=== PATIENT | female | born 1955 | race Caucasian/White ===

== ENCOUNTER 2017-04-09 10:50 | Emergency (ER) | payer MEDICARE ==
[2017-04-09 12:02] VITALS: BP 146/119
--- NOTE | 2017-04-09 12:45 | UC ---
UC General HPI - HPI Summary HPI Summary: 2-3 days of worsening abdomen pain---has been taking 10 mg oxycodone pain is left side of abdomen and radiates around front---patient is confused and is unreliable about recent events - History of Current Complaint Chief Complaint: UCAbdominalPain Stated Complaint: ABDOMINAL AND BACK PAIN Time Seen by Provider: 04/09/17 12:34 Hx Obtained From: Patient Hx From Patient Unobtainable Due To: Other - confused to recent events Onset/Duration: Gradual Onset, Lasting Days, Still Present Timing: Constant Onset Severity: Severe Current Severity: Severe Pain Intensity: 8 Pain Location at: left flank and abdomen Associated Signs & Symptoms: Positive: Abdominal Pain, Back Pain, Confusion - Allergy/Home Medications Allergies/Adverse Reactions: Allergies Allergy/AdvReac Type Severity Reaction Status Date / Time No Known Allergies Allergy Verified 04/09/17 11:50 PMH/Surg Hx/FS Hx/Imm Hx Previously Healthy: No Cardiovascular History: Hypertension GI/ History: Gastroesophageal Reflux, Kidney Stones Other History Of: Hepatitis C - Surgical History Surgical History: Yes Surgery Procedure, Year, and Place: 2016 LITHOTRIPSY. 1985 TUBAL LIGATION - Family History Known Family History: Positive: Unknown - Social History Occupation: Unemployed Lives: Alone Alcohol Use: None Substance Use Type: None Smoking Status (MU): Current Every Day Smoker Type: Cigarettes Amount Used/How Often: 1/2 PPD, 40+ YEARS Have You Smoked in the Last Year: Yes Household Exposure Type: Cigarettes Cessation Counseling: Counseled 3+Min - 10 Min Review of Systems Constitutional: Negative Skin: Negative Eyes: Negative ENT: Negative Respiratory: Negative Cardiovascular: Negative Gastrointestinal: Abdominal Pain Genitourinary: Negative Motor: Negative Neurovascular: Negative Musculoskeletal: Negative Neurological: Negative Psychological: Other - confused Is Patient Immunocompromised?: No All Other Systems Reviewed And Are Negative: Yes Physical Exam Triage Information Reviewed: Yes Completion Of Physical Exam Limited Due To: Altered Mental Status Appearance: Ill-Appearing, Pain Distress, Obese Vital Signs: Initial Vital Signs Temp 96.7 F 04/09/17 11:52 Pulse 113 04/09/17 11:52 Resp 20 04/09/17 11:52 BP 146/119 04/09/17 11:52 Pulse Ox 98 04/09/17 11:52 Vital Signs Reviewed: Yes Eye Exam: Normal Eyes: Positive: Conjunctiva Clear, Other: - pupils small ENT Exam: Normal ENT: Positive: Normal ENT inspection, Hearing grossly normal, Pharynx normal, Pharyngeal erythema, Nasal congestion, Uvula midline. Negative: Tonsillar swelling, Tonsillar exudate, Trismus, Muffled voice, Hoarse voice, Dental tenderness, Sinus tenderness Dental Exam: Normal Neck exam: Normal Neck: Positive: Supple, Nontender, No Lymphadenopathy Respiratory Exam: Normal Respiratory: Positive: Chest non-tender, Lungs clear, Normal breath sounds, No respiratory distress, No accessory muscle use Cardiovascular Exam: Normal Cardiovascular: Positive: No Murmur, Pulses Normal, Brisk Capillary Refill, Tachycardia Abdomen Description: Positive: Distended, Hepatomegaly. Negative: CVA Tenderness (R), CVA Tenderness (L), McBurney's Point Tenderness, Peritoneal Signs, Pulsatile Mass, Splenomegaly Bowel Sounds: Positive: Present Musculoskeletal Exam: Normal Musculoskeletal: Positive: Strength Intact, ROM Intact, No Edema Neurological Exam: Normal Neurological: Positive: Alert, Muscle Tone Normal Psychological Exam: Other Psychological: Positive: Other: - confusion (confirmed by friend who is with her ) Skin Exam: Normal Diagnostics - Laboratory Diagnostic Studies Completed/Ordered: ua trace leuks - EKG Cardiac Rhythm: Sinus: Normal Ectopy: None ST Segment: Normal Course/Dx - Course Course Of Treatment: transfer to [facility] [place] by ambulance - Differential Dx - Multi-Symptom Provider Diagnoses: confusion, abdomen pain - Physician Notifications Discussed Patient Care With: Rinku Alcala Time Discussed With Above Provider: 12:55 Instructed by Provider To: Transfer Discharge - Discharge Plan Condition: Guarded Disposition: TRANS HIGHER LVL OF CARE FAC Referrals: Nikolay Jacobs NP [Primary Care Provider] -
== END 2017-04-09 13:07 | disposition short-term general hospital (02) ==
LOC: UCEAST 10:50
DX: R41.0 Disorientation, unspecified (principal); R10.9 Unspecified abdominal pain; M54.5 Low back pain; I10 Essential (primary) hypertension; K21.9 Gastro-esophageal reflux disease without esophagitis; Z87.442 Personal history of urinary calculi; B18.2 Chronic viral hepatitis C; Z71.6 Tobacco abuse counseling; F17.210 Nicotine dependence, cigarettes, uncomplicated
CPT/HCPCS: 81003; 87086; 93005

== ENCOUNTER 2017-04-09 13:29 | Emergency (ER) | payer MEDICARE ==
[2017-04-09 14:18] LABS: ABS Basophils 0.1 10^3/ul (0-0.2); ABS Eosinophils 0.2 10^3/ul (0-0.6); ABS Lymphocytes 3.7 10^3/ul (1.0-4.8); ABS Monocytes 0.5 10^3/ul (0-0.8); ABS Neutrophils 4.2 10^3/ul (1.5-7.7); ABS Nucleated RBC 0 10^3/ul; Eosinophil % 2.6 % (0-6); Hematocrit 44 % (35-47); Hemoglobin 14.9 g/dl (12.0-16.0); Lymphocyte % 42.6 % (25-47); Mean Corpuscular HGB Conc 34 g/dl (31-36); Mean Corpuscular Hemoglobin 33 pg (27-31); Mean Corpuscular Volume 95 fL (80-97); Mean Platelet Volume 9 um3 (7.4-10.4); Nucleated Red Blood Cells % 0; Platelet Count 244 10^3/ul (150-450); Red Blood Count 4.59 10^6/ul (4.0-5.4); Red Cell Distribution Width 15 % (10.5-15); White Blood Count 8.8 10^3/ul (3.5-10.8)
--- NOTE | 2017-04-09 14:23 | RAD ---
INDICATION: Flank pain. Question nephrolithiasis. COMPARISON: No relevant prior exams available on the [facility] PACS for comparison. TECHNIQUE: Multidetector CT images were obtained from the lung bases to the ischial tuberosities. Evaluation of the viscera is limited without IV contrast. Multiplanar reformation. REPORT: Minimal basilar atelectasis. No CT abnormality of the unenhanced liver. Distended gallbladder without suspicious CT finding. Upper normal common bile duct. Moderately atrophic pancreas. Unremarkable spleen. No CT abnormality of the upper GI, small bowel, medially extending appendix, or colon. Negative for ascites, free air, or significant hernias. Normal adrenal glands. 1 mm calyceal stone midpole RIGHT kidney. Unremarkable nondilated ureters and partially distended urinary bladder as well as the uterus and adnexal regions. Unremarkable adrenal glands. 1 mm calyceal stone in the middle pole the RIGHT kidney. Focal cortical atrophy and 0.4 cm calcification at the posterior upper pole of the LEFT kidney. 1 mm calyceal stone at the inferior pole the LEFT kidney. Negative for ureteral stones or hydronephrosis. Negative for lymphadenopathy. Atherosclerotic calcification of normal diameter abdominal aorta and iliac arteries. Physiologic distention of the IVC. Evidence for avascular necrosis at the bilateral femoral heads without gross subchondral collapse. IMPRESSION: 1. Small burden of bilateral nephrolithiasis without evidence for a ureteral stone or hydronephrosis. 2. Normal appendix documented. 3. Evidence for avascular necrosis at the bilateral femoral heads without gross subchondral collapse. Correlate for risk factors.
[2017-04-09 14:26] LABS: INR 0.89 (0.77-1.02)
[2017-04-09] MEDS ORDERED: Ketorolac INJ* 30 MG/ML 1 ML VIAL IV PUSH ONE (14:27)
[2017-04-09 14:34] LABS: EGFR Non-African American 48.1 (>60)
--- NOTE | 2017-04-09 15:04 | ED ---
Back Pain - HPI Summary HPI Summary: Pt c/o L flank pain that radiates around L side to bilateral flank pain with associated nausea. Pain is worse with movement, better with rest. Pt has hx kidney stones, hep c+, stage 4 cirrhosis. Pt took 2 percocet before going to [facility] with c/o flank pain. She states her kidney stones are bilateral hip caused pain for several months, has followed up with urology who refuses to treat them. She is on pain medication daily for diffuse body aches. She denies any urinary symptoms including obstructive symptoms. Denies nausea, vomiting. - History of Current Complaint Chief Complaint: EDFlankPain Stated Complaint: FLANK PAIN,COMMING FROM Time Seen by Provider: 04/09/17 13:35 Hx Obtained From: Patient - -year-old Onset/Duration: Sudden Onset - is Onset/Duration: Started Hours Ago Timing: Constant Back Pain Location: Is Discrete @ - Bilateral flank pain Severity Initially: Moderate Severity Currently: Moderate Pain Intensity: 7 Aggravating Symptom(s): Movement Alleviating Symptom(s): Rest, Position Associated Signs And Symptoms: Positive: Negative - Risk Factors AAA Risk Factors: Negative TAD Risk Factors: Negative Cauda Equina Risk Factors: Negative Epidural Abscess Risk Factors: Negative - Allergies/Home Medications Allergies/Adverse Reactions: Allergies Allergy/AdvReac Type Severity Reaction Status Date / Time No Known Allergies Allergy Verified 04/09/17 11:50 PMH/Surg Hx/FS Hx/Imm Hx Previously Healthy: Yes Endocrine/Hematology History: Reports: Hx Diabetes - PREDIABETIC Denies: Hx Thyroid Disease Cardiovascular History: Reports: Hx Hypertension Respiratory History: Denies: Hx Asthma, Hx Chronic Obstructive Pulmonary Disease (COPD) - UNSURE GI History: Denies: Hx Ulcer Musculoskeletal History: Reports: Hx Back Problems - Surgical History Surgery Procedure, Year, and Place: 2016 LITHOTRIPSY. 1986 TUBAL LIGATION Infectious Disease History: No Infectious Disease History: Reports: Hx Hepatitis - HEP C Denies: Hx Clostridium Difficile, Hx Human Immunodeficiency Virus (HIV), Hx of Known/Suspected MRSA, Hx Shingles, Hx Tuberculosis, Hx Known/Suspected VRE, Hx Known/Suspected VRSA, History Other Infectious Disease, Traveled Outside the [place] in Last 30 Days - Family History Known Family History: Positive: Unknown - Social History Occupation: Unemployed Lives: With Family Alcohol Use: None Hx Substance Use: Yes Substance Use Type: Reports: Prescribed Substance Use Comment - Amount & Last Used: percocet, xanax Hx Tobacco Use: No Smoking Status (MU): Current Every Day Smoker Type: Cigarettes Amount Used/How Often: 1/2 PPD, 40+ YEARS Have You Smoked in the Last Year: Yes Review of Systems Constitutional: Negative Negative: Fever, Chills, Fatigue, Skin Diaphoresis ENT: Negative Respiratory: Negative Positive: Nausea. Negative: Abdominal Pain, Vomiting, Diarrhea Positive: see HPI, flank pain - bilateral Musculoskeletal: Negative Skin: Negative All Other Systems Reviewed And Are Negative: Yes Physical Exam Triage Information Reviewed: Yes Vital Signs On Initial Exam: Initial Vitals Temp Pulse Resp BP Pulse Ox 97.4 F 91 18 118/88 96 04/09/17 13:33 04/09/17 13:33 04/09/17 13:33 04/09/17 13:33 04/09/17 13:33 Vital Signs Reviewed: Yes Appearance: Positive: Well-Nourished, Ill-Appearing Skin: Positive: Warm, Skin Color Reflects Adequate Perfusion Head/Face: Positive: Normal Head/Face Inspection Eyes: Positive: EOMI, CLARENCE, Conjunctiva Clear ENT: Positive: Other - Dry mucous membranes Neck: Positive: Supple, No Lymphadenopathy Respiratory/Lung Sounds: Positive: Clear to Auscultation, Breath Sounds Present Cardiovascular: Positive: Normal, Pulses are Symmetrical in both Upper and Lower Extremities Neurological: Positive: Speech Normal Psychiatric: Positive: Affect/Mood Appropriate AVPU Assessment: Alert Diagnostics - Vital Signs Vital Signs Temp Pulse Resp BP Pulse Ox 04/09/17 13:33 97.4 F 91 18 118/88 96 - Laboratory Lab Results: Lab Results 04/09/17 04/09/17 04/09/17 Range/Units 14:11 14:11 14:11 WBC 8.8 (3.5-10.8) 10^3/ul RBC 4.59 (4.0-5.4) 10^6/ul Hgb 14.9 (12.0-16.0) g/dl Hct 44 (35-47) % MCV 95 (80-97) fL MCH 33 H (27-31) pg MCHC 34 (31-36) g/dl RDW 15 (10.5-15) % Plt Count 244 (150-450) 10^3/ul MPV 9 (7.4-10.4) um3 Neut % (Auto) 48.0 (38-83) % Lymph % (Auto) 42.6 (25-47) % Glenn % (Auto) 5.9 (1-9) % Eos % (Auto) 2.6 (0-6) % Baso % (Auto) 0.9 (0-2) % Absolute Neuts (auto) 4.2 (1.5-7.7) 10^3/ul Absolute Lymphs (auto) 3.7 (1.0-4.8) 10^3/ul Absolute Monos (auto) 0.5 (0-0.8) 10^3/ul Absolute Eos (auto) 0.2 (0-0.6) 10^3/ul Absolute Basos (auto) 0.1 (0-0.2) 10^3/ul Absolute Nucleated RBC 0 10^3/ul Nucleated RBC % 0 INR (Anticoag Therapy) 0.89 (0.77-1.02) Sodium 137 (133-145) mmol/L Potassium 3.9 (3.5-5.0) mmol/L Chloride 102 (101-111) mmol/L Carbon Dioxide 29 (22-32) mmol/L Anion Gap 6 (2-11) mmol/L BUN 12 (6-24) mg/dL Creatinine 1.14 H (0.51-0.95) mg/dL Est GFR ( Amer) 61.9 (>60) Est GFR (Non-Af Amer) 48.1 (>60) BUN/Creatinine Ratio 10.5 (8-20) Glucose 94 (70-100) mg/dL Lactic Acid (0.5-2.0) mmol/L Calcium 9.7 (8.6-10.3) mg/dL Magnesium 1.8 L (1.9-2.7) mg/dL Total Bilirubin 0.60 (0.2-1.0) mg/dL AST 16 (13-39) U/L ALT 16 (7-52) U/L Alkaline Phosphatase 56 (34-104) U/L C-Reactive Protein 4.94 (< 5.00) mg/L Total Protein 7.1 (6.4-8.9) g/dL Albumin 4.4 (3.2-5.2) g/dL Globulin 2.7 (2-4) g/dL Albumin/Globulin Ratio 1.6 (1-3) Lipase 17 (11.0-82.0) U/L 04/09/17 Range/Units 14:11 WBC (3.5-10.8) 10^3/ul RBC (4.0-5.4) 10^6/ul Hgb (12.0-16.0) g/dl Hct (35-47) % MCV (80-97) fL MCH (27-31) pg MCHC (31-36) g/dl RDW (10.5-15) % Plt Count (150-450) 10^3/ul MPV (7.4-10.4) um3 Neut % (Auto) (38-83) % Lymph % (Auto) (25-47) % Glenn % (Auto) (1-9) % Eos % (Auto) (0-6) % Baso % (Auto) (0-2) % Absolute Neuts (auto) (1.5-7.7) 10^3/ul Absolute Lymphs (auto) (1.0-4.8) 10^3/ul Absolute Monos (auto) (0-0.8) 10^3/ul Absolute Eos (auto) (0-0.6) 10^3/ul Absolute Basos (auto) (0-0.2) 10^3/ul Absolute Nucleated RBC 10^3/ul Nucleated RBC % INR (Anticoag Therapy) (0.77-1.02) Sodium (133-145) mmol/L Potassium (3.5-5.0) mmol/L Chloride (101-111) mmol/L Carbon Dioxide (22-32) mmol/L Anion Gap (2-11) mmol/L BUN (6-24) mg/dL Creatinine (0.51-0.95) mg/dL Est GFR ( Amer) (>60) Est GFR (Non-Af Amer) (>60) BUN/Creatinine Ratio (8-20) Glucose (70-100) mg/dL Lactic Acid 1.1 (0.5-2.0) mmol/L Calcium (8.6-10.3) mg/dL Magnesium (1.9-2.7) mg/dL Total Bilirubin (0.2-1.0) mg/dL AST (13-39) U/L ALT (7-52) U/L Alkaline Phosphatase (34-104) U/L C-Reactive Protein (< 5.00) mg/L Total Protein (6.4-8.9) g/dL Albumin (3.2-5.2) g/dL Globulin (2-4) g/dL Albumin/Globulin Ratio (1-3) Lipase (11.0-82.0) U/L Result Diagrams: 04/09/17 14:11 04/09/17 14:11 Lab Statement: Any lab studies that have been ordered have been reviewed, and results considered in the medical decision making process. Back Pain Course/Dx - Course Course Of Treatment: Denies any urinary symptoms or obstructive symptoms. She is requesting pain medication on arrival. She is taking 2 Percocets prior to arrival and states it is not helping with the pain. Patient has dry mucous membranes and myosis. She is on chronic pain medication and continues to ask for pain medicine. I have offered her Toradol to which she asks if it is a controlled substance. She states only controlled substance or Dilaudid work for her. I have declined giving her any more pain medications other than the Toradol and she accepts Toradol IV. She is resting comfortably although she states her pain is a [address] obtained which show bilateral nephrolithiasis without any signs of obstruction. I have encouraged her to return to urology. She states she would like them to be taken care of today, but I have stated she will need to follow up as an outpatient as there are no signs of obstruction, urosepsis, or other emergent symptoms to keep her in the hospital. She continues to ask for pain medications, patient as I stopped and has been getting multiple opioid medications. Again, I have refused but offered to give her a 4 day supply of Toradol. - Diagnoses Provider Diagnoses: Bilateral nephrolithiasis Discharge - Discharge Plan Condition: Stable Disposition: HOME Prescriptions: Ketorolac TAB * [Toradol TAB *] 10 mg PO Q6H #16 tab Patient Education Materials: Kidney Stones (ED) Referrals: Nikolay Jacobs NP [Primary Care Provider] - Nitin Marcelo MD [Medical Doctor] - Additional Instructions: Please follow-up with Dr. Marcelo as scheduled Moist heat packs to the area Intermittently you may take your at-home Percocet and the Toradol for relief
[2017-04-09 15:33] VITALS: BP 116/78
== END 2017-04-09 15:31 | disposition home or self-care (01) ==
LOC: ED 13:29
DX: N20.0 Calculus of kidney (principal); Z87.442 Personal history of urinary calculi; F17.210 Nicotine dependence, cigarettes, uncomplicated
CPT/HCPCS: 36415; 74176; 80053; 83605; 83690; 83735; 85025; 85610; 86140; 99282; J1885

== ENCOUNTER 2017-10-10 18:35 | Emergency (ER) | payer MEDICARE, MEDICAID ==
[2017-10-10 18:54] VITALS: BP 115/68
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
[2017-10-10] MEDS ORDERED: NS 0.9% 1000 ML* 1,000 ML IV ONE (19:00)
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
--- OUTSIDE RECORDS SUMMARY | 2017-10-10 19:38 | XMS REPORT ---
:1955 External Reference #:[id number] Author Organization [facility] Address [address] [facility] [place] [address] Phone [phone] Care Team Providers Name Role Phone Alexey Holt MD Primary Care Physician Unavailable Payers Type Date Identification Numbers Payment Provider Subscriber Medicare Primary Effective: Policy Number: Medicare Regi Weaver 2012 [id number] PayID: [id number] [address] [place] [address] [place]len arm Part B Effective: 2017 Policy Number: [id number] Medicaid Regi Weaver Group Name: 1 1 [address] PayID: [id number] [place] [address] Problems Date Description Provider Status Onset: 01/14/2017 Type 2 diabetes mellitus Nikolaybenito Jacobs, LOIS Active Onset: 01/14/2017 Chronic obstructive lung disease Nikolay Arlene, [employer] Active Onset: 01/14/2017 Anxiety state Nikolay Arlene, [employer] Active Onset: 01/14/2017 History of viral hepatitis Nikolaybenito Jacobs, [employer] Active Onset: 01/14/2017 Hepatic encephalopathy Nikolay Arlene, [employer] Active Onset: 01/14/2017 Gastroesophageal reflux disease Nikolay Arlene, [employer] Active Onset: 01/14/2017 Chronic back pain Nikolay Arlene, [employer] Active Onset: 01/14/2017 Irritable bowel syndrome Nikolaybenito Jacobs, [employer] Active characterized by constipation Onset: 07/05/2017 Peripheral vascular disease Shalom Jensen MD, Active [facility], [facility] Family History Date Family Member(s) Problem(s) [...] Form Strength Qnty SIG Indications Ordering Provider Diazepam 09/15 Active Tablets 2mg 60tab 1 [...] 18mcg 30cap Inhale The J44.9 Nikolay Handihaler /2016 s Contents Of 1 LOIS Jacobs Capsule By Mouth Via Handihaler Daily Clonidine HCL 01/14 Active Tablets 0.1mg 60tab Take 1 Tablet Nikolay s By Mouth 2 LOIS Jacobs Times A Day Oxycodone HCL 00/00 Active Tablets 10mg take one Unknown /0000 tablet by mouth every 6 hours as needed for pain; maximum daily dose=4 Gabapentin Active Capsules 100mg take 1 tid Unknown / Metoprolol Active Tablets 25mg 60tab Take 1 Tablet Nikolay Tartrate / s By Mouth Twice Arlene, [employer] A Day Bactrim DS 05/16 Hx Tablets 800-160mg 14tab take 1 tab N39.0 s orally 2 times Arlene, [employer] - daily x 7 days 06/30 Linzess 02/25 Hx Capsules 145mcg 30cap 1 by mouth Nikolay s daily Arlene [employer] - 03/28 Quetiapine 01/14 Hx Tablets 25mg 60tab 1 by mouth two Nikolay Fumarate s times a day LOIS Jacobs - 06/30 Linzess 01/14 Hx Capsules 290mcg 30cap 1 by mouth Nikolay s daily if LOIS Jacobs - severly 01/14 constipated otherwise takes 145mcg on a daily basis. Quetiapine 01/14 Hx Tablets 200mg 90tab 2 1/2 tabs by Nikolay Fumarate s mouth at Arlene, [employer] - bedtime 06/30 Alprazolam 01/14 Hx Tablets 1mg 60tab take 1 tablet s twice daily as Arlene [employer] - needed 09/15 Percocet 01/14 Hx Tablets 10-325mg 120ta 1 tab by mouth bs every 6 hours Arlene [employer] - as needed for 05/16 Spironolactone 01/14 Hx Tablets 25mg. 30tab 1 by mouth Nikolay s every day LOIS Jacobs - 01/14 Omeprazole 01/14 Hx Capsules 20mg 30cap 1 by mouth K21.[address] andrade once daily Arlene [employer] - 08/02 Quetiapine Hx Tablets 200mg 2.5 [...] Inj, Administered Injection Zay Lainez Regadenoson, 018 Sawyer, 0.1 MG M.DLyndsey, FACC, FASNC Technetium TC Administered Injection Zay Lainez 99M 018 Sawyer, Tetrofosmin, Madeleine, FACC, Per Unit Dose FASNC Up To 40 Millicuries Immunizations CPT Code Status Date Vaccine Reaction Lot # [id number] Given 01/14/2017 Influenza Virus Vaccine, No immediate [id number] Quadrivalent, Split, reaction....jh Preservative Free Vital Signs Date Vital Result Comment 09/15/2017 Height 64 inches 5'4" Weight 194.25 [...] Test Date Test Result H/L Range Note Urine Culture And 05/16/2017 Urine Culture SEE RESULT BELOW 1, 2 Sensitivities Ua Routine 05/16/2017 Ua Specific [place] 1.015 Ua PH 5 Ua Color dark yellow Ua Appera clear Ua WBC trace Ua Protein trace Ua Glucose normal Ua Ketones neg. Ua Bilirubin pos. Ua Urobilinogen norm. Ua Nitrite neg. Ua Occult Blood neg. Creatinine 05/12/2017 Creatinine 1.30 mg/dL High 0.51-0.95 Egfr Non- 41.4 >60 Egfr 53.2 >60 3 CBC Auto Diff 04/09/2017 White Blood Count [...] Egfr Non- 48.1 >60 Egfr 61.9 >60 4 Laboratory test finding 04/09/2017 Magnesium 1.8 mg/dL Low 1.9-2.7 Lipase 17 U/L 11.0-82.0 C Reactive Protein 4.94 mg/L < 5.00 5 Lactic Acid 1.1 mmol/L 0.5-2.0 6 Inr/Protime 04/09/2017 Inr 0.89 0.77-1.02 Urine Culture And 04/09/2017 Urine Culture SEE RESULT BELOW 7, 8 Sensitivities Poc Urinalysis 04/09/2017 Poc Glucose, Negative Negative Urine Poc Bilirubin, Urine Negative Negative Poc Ketone, Urine Negative Negative Poc Specific [place], Urine <=1.005 Low 1.010-1.030 Poc Blood, Urine Negative Negative Poc pH, Urine 7.0 5-9 Poc Protein, Urine Negative Negative Poc Urobilinogen, Urine 0.2 Negative Poc Nitrite, Urine Negative Negative Poc Leukocytes, Urine Trace Negative Poc Color, Urine Yellow Poc Clarity, Urine Slightly Cloudy 9 Laboratory test finding 03/23/2017 Ammonia 47 ?mol/L 16-53 Comp Metabolic Panel 03/23/2017 Sodium 139 mmol/L [...] Egfr Non- 43.7 >60 Egfr 56.2 >60 10 Laboratory test finding 03/23/2017 B-Type Natriuretic Peptide 135 pg/mL High 11 BNP Lipid Profile 03/23/2017 Triglycerides 341 mg/dL 12 (Trig/Chol/HDL) Cholesterol 209 mg/dL 13 HDL Cholesterol 29.2 mg/dL 14 LDL Cholesterol 112 mg/dL 15 Urine Microalbumin Random 03/23/2017 Ur Microalbumin (mg/L) 7.6 mg/L Urine Creatinine 134.67 mg/dL Urine Microalbumin/Creatinine 5.6 ug/mg <31 Laboratory test 03/23/2017 Hemoglobin A1c 6.0 % High 4.0-5.6 16 finding (Glyco HGB) Benzodiazepine Confirm 01/14/2017 Urine Lorazepam Negative ng/mL 17, 18 Urine GC/MS Urine Nordiazepam GC/MS Negative ng/mL 17, 19 Urine Oxazepam GC/MS Negative ng/mL 17, 20 Urine Temazepam GC/MS Negative ng/mL 17, 21 Ur Oh Ethyl Flurazepam GC/MS Negative ng/mL 17, 22 Ur 7 NH Clonazepam GC/MS Negative ng/mL 17, 23 Ur 7 NH Flunitrazepam GC/MS Negative ng/mL Cutoff: 50 17 Ur Alpha Oh Alprazolam GC/MS See Comment ng/mL 17, 24 Ur Alpha Oh Triazolam GC/MS Negative ng/mL 17, 25 Ur Benzodiazepine Interp See Comment 17, 26 Drug Abuse 20 Urine 01/14/2017 Urine Amphetamine Negative ng/mL 17, 27 Urine Barbiturates Negative ng/mL 17, 28 Urine Benzodiazepines Presumptive Posi <SEE NOTE> ng/mL 17, 29 Urine Cocaine Negative ng/mL 17, 30 Urine Phencyclidine Negative ng/mL Cutoff: 25 17 Urine Tetrahydrocannabinol Negative ng/mL Cutoff: 50 17, 31 Creatinine, Urine 37.1 mg/dL 17 Specific Buffalo 1.009 17 pH 6.2 17 Oxidants Negative 17, 32 Adulterants Comment Normal 17 Codeine, Ur Not Detected ng/mL Cutoff: 25 17, 33 Ncpsyfx-0-xazd-glucuronide, Ur Not Detected ng/mL 17, 34 Morphine, Ur Not Detected ng/mL Cutoff: 25 17, 35 Zypvbqal-8-jkuj-glucuronide, U Not Detected ng/mL 17, 36 6-monoacetylmorphine, Ur Not Detected ng/mL Cutoff: 25 17, 37 Hydrocodone, Ur Not Detected ng/mL Cutoff: 25 17, 38 Norhydrocodone, Ur Not Detected ng/mL Cutoff: 25 17, 39 Dihydrocodeine, Ur Not Detected ng/mL Cutoff: 25 17, 40 Hydromorphone, Ur Not Detected ng/mL Cutoff: 25 17, 41 Zcoqrmzzpbgjm5crayctlvnxupgzd Not Detected ng/mL 17, 42 Oxycodone, Ur Present ng/mL Cutoff: 25 17, 43 Noroxycodone, Ur Present ng/mL Cutoff: 25 17, 44 Oxymorphone, Ur Present ng/mL Cutoff: 25 17, 45 Griearctsqo-6-aths-glucuronide Present ng/mL 17, 46 Noroxymorphone, Ur Present ng/mL Cutoff: 25 17, 47 Fentanyl, Ur Not Detected ng/mL Cutoff: 2 17, 48 Norfentanyl, Ur Not Detected ng/mL Cutoff: 2 17, 49 Meperidine, Ur Not Detected ng/mL Cutoff: 25 17, 50 Normeperidine, Ur Not Detected ng/mL Cutoff: 25 17, 51 Naloxone, Ur Not Detected ng/mL Cutoff: 25 17, 52 Ccofkawk-6-aurt-glucuronide, U Not Detected ng/mL 17, 53 Methadone, Ur Not Detected ng/mL Cutoff: 25 17, 54 Eddp, Ur Not Detected ng/mL Cutoff: 25 17, 55 Propoxyphene, Ur Not Detected ng/mL Cutoff: 25 17, 56 Norpropoxyphene, Ur Not Detected ng/mL Cutoff: 25 17, 57 Tramadol, Ur Not Detected ng/mL Cutoff: 25 17, 58 O-desmethyltramadol, Ur Not Detected ng/mL Cutoff: 25 17, 59 Tapentadol, Ur Not Detected ng/mL Cutoff: 25 17, 60 N-desmethyltapentadol, Ur Not Detected ng/mL Cutoff: 50 17, 61 Eucpuwzfzn-euby-pqrwmvemqae, U Not Detected ng/mL 17, 62 Buprenorphine, Ur Not Detected ng/mL Cutoff: 5 17, 63 Norbuprenorphine, Ur Not Detected ng/mL Cutoff: 5 17, 64 Norbuprenorphine glucuronide Not Detected ng/mL Cutoff: 20 17, 65 Opioid Interpretation See Comment 17, 66 1 [id number] 2 SEE RESULT BELOW Name: REGI WEAVER : [address]: Nikolay Jacobs NP Acct: [id number] Unit: [id number] AGE: 62 Location: [facility] Re05/16/17 SEX: F Status: REG REF SPEC: [id number] ZHANG: 05/16/171138 [facility] DR: Nikolay Jacobs NP REQ: [id number] RECD: 05/16/17 STATUS: COMP _ SOURCE: URINE SPDESC: ORDERED: Urine Culture COMMENTS: [id number] QUERIES: Urine Source: Random Procedure Result Reported Site Urine Culture Final 05/17/17- 1720 ML No Growth (<1,000 CFU/mL) * ML - Main Lab . END OF REPORT DEPARTMENT OF PATHOLOGY, [address] [place] [address] Feliciano Sutton M.D. Director [facility] # [id number] 3 Because ethnic data is not always readily [...] 15-29 5 Kidney failure <15 (or dialysis) 4 Because ethnic data is not always readily [...] 15-29 5 Kidney failure <15 (or dialysis) 5 Acute inflammation: >10.00 6 WAS Severe Sepsis and Septic Shock Management Bundle Measure requires all lactic acids initially measuring >2.0 mmol/L be repeated. 7 [id number] SEE RESULT BELOW Name: REGI WEAVER : [address]: Allyssa Rose Acct: [id number] Unit: [id number] AGE: 62 Location: [facility] Re04/09/17 SEX: F Status: DEP ER SPEC: [id number] ZHANG: 04/09/17-[address]: Allyssa Franks DO REQ: [id number] RECD: 04/09/17 STATUS: SALUD BE DR: [facility] Nikolay Jacobs PROGRAM DIRECT[employer] WORK _ SOURCE: URINE SPDESC: ORDERED: Urine Culture COMMENTS: [id number] Procedure Result Reported Site Urine Culture Final 04/10/17- 1415 ML No Growth (<1,000 CFU/mL) * ML - MAIN LAB ([facility]) . END OF REPORT * ML=Testing performed at Main Lab DEPARTMENT OF PATHOLOGY, [address] [place] [address] Feliciano Sutton M.D. Director [facility] # [id number] Office Executive: [id number] 10 Because ethnic data is not always readily [...] 15-29 5 Kidney failure <15 (or dialysis) 11 >100 to <200 pg/mL: likely compensated congestive heart failure (CHF) 200 to 400 pg/mL: likely moderate CHF >400 pg/mL: likely moderate to severe CHF 12 Desirable: <150 Borderline High: 150-199 High: 200-499 Very High: >500 13 Desirable: <200 Borderline High: 200-239 High: >239 14 Low: <40 Desirable: 40-60 High: >60 15 Desirable: <100 Near Optimal: 100-129 Borderline High: 130-159 High: 160-189 Very High: >189 16 Therapeutic target for the treatment of diabetes mellitus patients is <7% HBA1C, and in selective patients <6.0%. Please refer to [place] [employer] diabetic care guidelines for further information. 17 [id number] 18 REFERENCE VALUE Cutoff: 100 19 REFERENCE VALUE Cutoff: 100 20 REFERENCE VALUE Cutoff: 100 21 REFERENCE VALUE Cutoff: 100 22 REFERENCE VALUE Cutoff: 100 23 REFERENCE VALUE Cutoff: 100 24 Unknown interfering substance present; unable to obtain results. REFERENCE VALUE Cutoff: 100 25 REFERENCE VALUE Cutoff: 100 26 Chromatographic interference prevents accurate identification. ADDITIONAL INFORMATION This report is intended for use in clinical monitoring and management of patients. It is not intended for use in employment-related testing. This test was developed and its performance characteristics determined by [facility] in a manner consistent with CLIA requirements. This test has not been cleared or approved by the U.S. Food and Drug Administration. Test Performed by: [facility] [address], [place] [address] 27 REFERENCE VALUE Cutoff: 500 28 REFERENCE VALUE Cutoff: 200 29 Presumptive Positive Drug confirmation to follow. Presumptive Positive means that the screening method is positive, but the test needs to be run by a confirmatory method before being finalized. REFERENCE VALUE Cutoff: 100 30 REFERENCE VALUE Cutoff: 150 31 ADDITIONAL INFORMATION This report is intended for use in clinical monitoring or management of patients. It is not intended for use in employment-related testing. 32 REFERENCE VALUE Cutoff: 200 mg/L 33 Tylenol 3 34 Metabolite of codeine REFERENCE VALUE Cutoff: 100 35 Andra Griggs, Contin; Also a minor metabolite (10%) of codeine and can be seen in low concentrations (<2,000 ng/mL) with poppy seed ingestion. 36 Metabolite of morphine REFERENCE VALUE Cutoff: 100 37 Metabolite of heroin 38 Lortab, [place], Vicodin; Also a very minor metabolite of codeine and impurity (<1%) of oxycodone. 39 Metabolite of hydrocodone 40 Metabolite of hydrocodone 41 Dilaudid, Exalgo; Also a metabolite of hydrocodone and a minor (<5%) metabolite of morphine. 42 Metabolite of hydromorphone REFERENCE VALUE Cutoff: 100 43 Endocet, Percocet, Oxycontin 44 Metabolite of oxycodone 45 Numorphan, Opana; Also a metabolite of oxycodone. 46 Metabolite of oxymorphone REFERENCE VALUE Cutoff: 100 47 Metabolite of oxymorphone 48 Actiq, Duragesic, Fentora 49 Metabolite of fentanyl 50 Demerol 51 Metabolite of meperidine 52 Narcan 53 Metabolite of naloxone REFERENCE VALUE Cutoff: 100 54 Dolophine 55 Metabolite of methadone 56 Darvon, Darvocet 57 Metabolite of propoxyphene 58 Tradol, Ultram, Ultracet 59 Metabolite of tramadol 60 Nucynta 61 Metabolite of tapentadol 62 Metabolite of tapentadol REFERENCE VALUE Cutoff: 100 63 Buprenex, Suboxone 64 Metabolite of buprenorphine 65 Metabolite of buprenorphine 66 Test detected the presence of oxycodone and several metabolites (noroxycodone, oxymorphone, noroxymorphone, and vzhebkpokcu-6-atwa-glucuronide). Suspect use of oxycodone or possibly oxycodone and oxymorphone within the past three days. ADDITIONAL INFORMATION This test was developed and its performance characteristics determined by [facility] in a manner consistent with CLIA requirements. This test has not been cleared or approved by the U.S. Food and Drug Administration. Test Performed by: [facility] [address] [place] [address] Procedures Date CPT Code Description Status 09/07/2017 29823 Injection Single Tendon Origin/Insertion Completed 05/20/2017 73442 Carotid Doppler,Bilateral Completed 05/20/2017 48448 Carotid Doppler,Bilateral Completed 05/17/2017 62455 ECHO Transthoracic, Real-Time 2D With Doppler And Color Completed Flow 05/17/2017 83661 ECHO Transthoracic, Real-Time 2D With Doppler And Color Completed Flow 03/11/2017 44424 Stress Test Completed 03/11/2017 01890 Myocardial Perfusion Imaging Tomographic (Spect) Completed Multiple Studies 03/09/2017 20763 EKG Tracing & Interpretation Completed Encounters Type Date Location Provider CPT E/M Dx Office Visit 09/07/2017 [facility] Alannah Ponce M.D. 96532 M25.551 8:00a [facility] [place] M25.552 M70.61 M70.62 M16.0 Office Visit 08/03/2017 10:20a [facility] Evelyn Jensen, [address] I73.9 [facility], [facility] Office Visit 07/05/2017 1:30p [facility] Evelyn Jensen, [address] I73.9 [facility], [facility] I10 N18.3 Z72.0 G89.4 E08.22 B19.20 Office Visit 06/30/2017 4:00p [facility] [place] [address] G47.00 - [place] Office Visit 06/17/2017 8:30a [facility] Sakshi Salvador Brand, 24832 I50.9 [facility] M.Madeleine R07.9 I73.9 Office Visit 05/16/2017 10:20a [facility] Internal Medicine - Nikolay Jacobs, LOIS [address]45 Z79.84 [place] E11.9 N39.0 Z72.0 J44.9 R94.4 I50.9 Office Visit 03/09/2017 1:00p [facility] Madeleine Camacho, [address] I50.9 [facility] Madeleine R07.9 I65.23 R06.02 Office Visit 01/14/2017 11:00a [facility] [place] [address] I50.9 [place] J44.9 E11.9 K59.00 K21.9 G93.40 G47.00 F41.9 Z13.220 M54.9 Z23 Plan of Care Future Appointment(s):09/26/2017 10:15 am - Alannah Ponce M.D. at [facility]09/15/2017 - Nikolay Jacobs, NPR25.2 Cramp and spasmComments:I have prescribed the diazepam that we discussed. This should also work longer for your anxiety thanthe alprazolam. Take this up to twice daily.DO NOT take the alprazolam with this. I have ordered thebloodwork that we discussed.Follow up:prn
== END 2017-10-10 19:55 | disposition short-term general hospital (02) ==
LOC: UCEAST 18:35
DX: R55 Syncope and collapse (principal); S09.90XA Unspecified injury of head, initial encounter; W18.30XA Fall on same level, unspecified, initial encounter; Y93.9 Activity, unspecified; Y92.9 Unspecified place or not applicable; R41.0 Disorientation, unspecified; E11.9 Type 2 diabetes mellitus without complications; Z79.84 Long term (current) use of oral hypoglycemic drugs; Z88.5 Allergy status to narcotic agent; Z82.49 Family history of ischemic heart disease and other diseases of the circulatory system; Z83.3 Family history of diabetes mellitus; Z87.891 Personal history of nicotine dependence
CPT/HCPCS: 93005; 99213; G0463

== ENCOUNTER 2017-10-10 20:18 | Inpatient (IN) | payer MEDICARE, MEDICAID ==
[2017-10-10] MEDS ORDERED: NS 0.9% 1000 ML* 1,000 ML IV ONE (20:50)
[2017-10-10 21:18] LABS: ABS Basophils 0.1 10^3/ul (0-0.2); ABS Eosinophils 0.2 10^3/ul (0-0.6); ABS Lymphocytes 2.6 10^3/ul (1.0-4.8); ABS Monocytes 0.7 10^3/ul (0-0.8); ABS Neutrophils 4.8 10^3/ul (1.5-7.7); ABS Nucleated RBC 0 10^3/ul; Eosinophil % 1.9 % (0-6); Hematocrit 34 % (35-47); Hemoglobin 11.5 g/dl (12.0-16.0); Lymphocyte % 30.8 % (25-47); Mean Corpuscular HGB Conc 34 g/dl (31-36); Mean Corpuscular Hemoglobin 32 pg (27-31); Mean Corpuscular Volume 95 fL (80-97); Mean Platelet Volume 8.8 um3 (7.4-10.4); Nucleated Red Blood Cells % 0.1; Platelet Count 193 10^3/ul (150-450); Red Blood Count 3.58 10^6/ul (4.00-5.40); Red Cell Distribution Width 15 % (10.5-15); White Blood Count 8.4 10^3/ul (3.5-10.8)
[2017-10-10 21:26] LABS: Urine Appearance Clear; Urine Blood Negative (Negative); Urine Color Straw; Urine Ketones Negative (Negative); Urine Protein Negative (Negative); Urine Specific Gravity 1.003 (1.010-1.030); Urine Urobilinogen Negative (Negative)
[2017-10-10 21:28] LABS: INR 0.83 (0.77-1.02)
[2017-10-10 21:34] LABS: EGFR Non-African American 50.2 (>60)
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
[2017-10-10] MEDS ORDERED: Iodixanol* (CONTRAST) 320 MG/ML 100 ML SDV IV ONE (22:50)
[2017-10-11] MEDS ORDERED: Acetaminophen TAB* 325 MG PO ONE (01:14)
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
[2017-10-11] MEDS ORDERED: Docusate CAP* 100 MG PO PRN (01:30)
[2017-10-11] MEDS ORDERED: Ondansetron INJ* 2 MG/ML VIAL IV PRN (01:30)
[2017-10-11] MEDS ORDERED: Al Hydrox/Mg Hydrox/Simet LIQ* 30 ML UDC PO PRN (01:30)
[2017-10-11] MEDS ORDERED: Senna TAB PO PRN (01:30)
[2017-10-11] MEDS ORDERED: ALPRAZolam TAB* 0.25 MG PO PRN (01:34)
[2017-10-11] MEDS ORDERED: Albuterol HFA INHALER* 8 gm MDI INH PRN (01:36)
[2017-10-11] MEDS ORDERED: Dextrose 50% Syringe 50 ML* 25 GM/50 ML SYRINGE IV PUSH PRN (01:36)
[2017-10-11] MEDS ORDERED: Aspirin 81 mg CHEW TAB* 81 MG TAB.CHEW PO ONE (01:49)
[2017-10-11] MEDS: Cephalexin CAP* 500 MG PO SCH ×4 (02:04→20:06)
[2017-10-11] MEDS: Gabapentin CAP(*) 100 MG PO SCH ×4 (02:04→20:05)
[2017-10-11] MEDS: Heparin VIAL(*) 5000 UNITS/ML VIAL (FIVE THOUSAND) SUBCUT SCH ×3 (06:02→20:07)
[2017-10-11] MEDS: oxyCODONE TAB* 5 MG TAB PO PRN ×3 (06:12→18:25)
[2017-10-11] MEDS: Tiotropium CAP.INH* CAP.INH/18 MCG (USE ORDER SET !) INH SCH (08:30)
[2017-10-11] MEDS: Fluticasone/Vilanterol MDI(NF) 100/25 MDI INH SCH (08:33)
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
[2017-10-11] MEDS ORDERED: Spiriva Inhaler DEVICE* 1 EACH DEVICE INH ONE (09:00)
[2017-10-11] MEDS: Insulin LISPRO* 1 UNITS UNIT SUBCUT SCH ×3 (09:44→18:14)
[2017-10-11] MEDS: Omeprazole CAP* 20 MG PO SCH (09:57)
[2017-10-11] MEDS: Aspirin 81 mg CHEW TAB* 81 MG TAB.CHEW PO SCH (09:57)
[2017-10-11] MEDS: Metoprolol Succinate XL TAB* 25 MG PO SCH ×2 (09:58→20:07)
--- NOTE | 2017-10-11 12:05 | RAD ---
HISTORY: r/o CVA COMPARISONS: Head CT dated October 10, 2017 TECHNIQUE: The following sequences were obtained of the head: Sagittal T1-weighted images, axial T2-weighted images, axial FLAIR images, axial susceptibility weighted images, axial T1-weighted images. Additionally, axial diffusion-weighted images were obtained with calculated apparent diffusion coefficients. FINDINGS: HEMORRHAGE/INFARCT: There is no hemorrhage or acute infarct. MASSES/SHIFT: There is no mass or shift. EXTRA-AXIAL SPACES/MENINGES: There are no extra-axial fluid collections. SULCI AND VENTRICLES: The sulci and ventricles are normal in size and position for the patient's stated age. CEREBRUM: There are multiple scattered small foci of elevated T2/FLAIR signal within the periventricular and subcortical white matter. BRAINSTEM: There are no focal parenchymal abnormalities. CEREBELLUM: There are no focal parenchymal abnormalities. The cerebellar tonsils are normal in size and position. SELLA: The sella is normal. PINEAL: The pineal region is clear. CP ANGLE/TEMPORAL BONES: The labyrinthine structures are grossly normal. VESSELS: Normal flow-voids are noted within the visualized vertebral vasculature. DIFFUSION ABNORMALITIES: There are no diffusion abnormalities. PARANASAL SINUSES/MASTOIDS: The paranasal sinuses are clear. ORBITS: The orbits are unremarkable. BONES AND SOFT TISSUE: No bone or soft tissue abnormalities are noted. OTHER: None IMPRESSION: 1. THERE ARE MULTIPLE FOCI OF ELEVATED T2/FLAIR SIGNAL WITHIN THE PERIVENTRICULAR AND SUBCORTICAL WHITE MATTER. WHILE THESE FINDINGS ARE NONSPECIFIC, THEY CAN BE SEEN IN ASSOCIATION WITH MIGRAINE HEADACHE, THE SEQUELA OF PREVIOUS INFECTION OR INFLAMMATION, AND CHRONIC SMALL VESSEL ISCHEMIA. DEMYELINATING DISEASE IS ALSO WITHIN THE DIFFERENTIAL, BUT IS CONSIDERED LESS LIKELY IN THE ABSENCE OF THE APPROPRIATE CLINICAL PRESENTATION. 2. THERE IS NO RESTRICTED DIFFUSION TO SUGGEST ACUTE INFARCT.
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
--- NOTE | 2017-10-11 15:35 | ECHO ---
Patient: MIKE WEAVER [facility] Rec#: [id number] : 1955 Date: 10/11/2017 Age: 62y Height: 165 cm / 65.0 in Weight: 94 kg / 207.2 lbs Sex: F BSA: 2.01 Room#: [facility] Admit Date#: 10/11/2017 Type: Inpatient Referring: Sangita Lopez Reading: David Camacho MD [employer] Worker: Kim Willett,RDCS,RDMS CC: [facility] Transthoracic Echocardiogram Indication: Syncope BP: 107/57 HR: 79 Rhythm: NSR Findings History: CAD, HTN Technical Comments: The study quality is good. Left Ventricle: The left ventricular chamber size is normal. Mild concentric left ventricular hypertrophy is observed. Global left ventricular wall motion and contractility are within normal limits. There is normal left ventricular systolic function. The estimated ejection fraction is 55-60%. Abnormal left ventricular diastolic function is observed. Left Atrium: The left atrium is mildly dilated. Right Ventricle: The right ventricular chamber size and systolic function are within normal limits. Right Atrium: The right atrial cavity size is normal. Aortic Valve: The aortic valve is trileaflet. There is no evidence of aortic valve thickening. There is aortic annular calcification. There is trace to mild aortic regurgitation. There is no evidence of aortic stenosis. Mitral Valve: The mitral valve leaflets appear normal. There is no evidence of mitral regurgitation. There is no evidence of mitral stenosis. Tricuspid Valve: The tricuspid valve leaflets are normal. There is trace tricuspid regurgitation. Unable to estimate the right ventricular systolic pressure. Pulmonic Valve: There is no evidence of pulmonic valve thickening. There is a trace pulmonic regurgitation. Pericardium: There is no significant pericardial effusion. Aorta: The aortic root appears normal. There is mild dilatation of the aortic arch. Pulmonary Artery: The main pulmonary artery appears normal. Venous: The inferior vena cava appears normal in size. There is an approximate 50% respiratory change in the inferior vena cava dimension. Summary: There was not any prior study for comparison. Conclusions Global left ventricular wall motion and contractility are within normal limits. There is normal left ventricular systolic function. The estimated ejection fraction is 55-60%. The right ventricular chamber size and systolic function are within normal limits. There is trace to mild aortic regurgitation. There is no evidence of mitral regurgitation. There is trace tricuspid regurgitation. Unable to estimate the right ventricular systolic pressure. There is no significant pericardial effusion. Measurements Name Value Normal Range RVIDd (AP) 2D 2.5 cm (0.9 - 2.6) RVDdMajor (2D) 3.3 cm (2.2 - 4.4) RAd ISD 4CH 4.8 cm (3.4 - 4.9) RA (A4C)W 4 cm (2.9 - 4.6) IVSd (2D) 1.1 cm (0.6 - 1) LVPWd (2D) 1.1 cm (0.6 - 1) LVIDd (2D) 4.2 cm (3.6 - 5.4) LVIDs (2D) 2.8 cm - LV FS (2D) 34 % (25 - 45) Aortic Annulus 2 cm (1.4 - 2.6) Ao root diameter (2D) 2.8 cm (2.1 - 3.5) Ascending Ao 3.4 cm (2.1 - 3.4) Aortic arch 3.9 cm (1.8 - 3.4) LA dimension (AP) 2D 3.5 cm (2.3 - 3.8) LAd ISD 4CH 6.1 cm (2.9 - 5.3) LA ISD 4CH W 4.3 cm (2.5 - 4.5) Name Value Normal Range LA ESV BP (A/L) index 28 ml/m2 - Name Value Normal Range MV E-wave Vmax 0.9 m/sec - MV deceleration time 182 msec - MV A-wave Vmax 0.8 m/sec - MV E:A ratio 1.1 ratio - LV septal e' Vmax 0.08 m/sec - LV lateral e' Vmax 0.1 m/sec - LV E:e' septal ratio 11 ratio - LV E:e' lateral ratio 9 ratio - Name Value Normal Range AV Vmax 1.7 m/sec - AV VTI 35 cm - AV peak gradient 12 mmHg - AV mean gradient 6 mmHg - LVOT Vmax 1.4 m/sec - LVOT VTI 27 cm - LVOT peak gradient 8 mmHg - LVOT mean gradient 4 mmHg - HIMANSHU Vmax 0.6 m/sec - Name Value Normal Range RAP 8 mmHg - IVC diameter 1.7 cm - Name Value Normal Range PV Vmax 0.9 m/sec - PV peak gradient 3.2 mmHg -
[2017-10-11] MEDS: Acetaminophen TAB* 325 MG PO PRN (20:06)
[2017-10-11] MEDS: Amitriptyline TAB* 100 MG PO SCH (20:13)
[2017-10-12] MEDS: Heparin VIAL(*) 5000 UNITS/ML VIAL (FIVE THOUSAND) SUBCUT SCH ×3 (05:47→21:46)
[2017-10-12] MEDS: oxyCODONE TAB* 5 MG TAB PO PRN ×3 (07:41→19:42)
[2017-10-12] MEDS: Insulin LISPRO* 1 UNITS UNIT SUBCUT SCH ×3 (08:50→16:49)
[2017-10-12] MEDS: Fluticasone/Vilanterol MDI(NF) 100/25 MDI INH SCH (09:01)
[2017-10-12] MEDS: Metoprolol Succinate XL TAB* 25 MG PO SCH ×2 (09:23→21:00)
[2017-10-12] MEDS: Aspirin 81 mg CHEW TAB* 81 MG TAB.CHEW PO SCH (09:24)
[2017-10-12] MEDS: Cephalexin CAP* 500 MG PO SCH ×3 (09:24→21:01)
[2017-10-12] MEDS: Gabapentin CAP(*) 100 MG PO SCH ×3 (09:24→21:00)
[2017-10-12] MEDS: Omeprazole CAP* 20 MG PO SCH (09:25)
[2017-10-12] MEDS: Tiotropium CAP.INH* CAP.INH/18 MCG (USE ORDER SET !) INH SCH (09:25)
--- NOTE | 2017-10-12 10:11 | EEG ---
ELECTROENCEPHALOGRAPHY: DATE OF STUDY: 10/11/2017. PATIENT OF: Nelida Keith LOIS Guerrier HISTORY: This is a 62-year-old woman who is being evaluated for syncope and for seizures. MEDICATIONS: Include: 1. Spiriva. 2. Humalog. 3. Neurontin. 4. Keflex. 5. Heparin. 6. Elavil. 7. Toprol. 8. Prozac. 9. Aspirin. 10. Fluconazole. 11. Ventolin. 12. Xanax. 13. Colace. 14. Zofran. 15. Oxycodone. 16. Senokot. INTERPRETATION: With the patient awake, background cerebral activity consists of moderate amplitude posterior dominant 7 Hz rhythm, no major asymmetries in background are noted. The patient never falls asleep. There is one somewhat sharply contoured theta wave apparently in left temporal lobe of unclear clinical significance, no other possible epileptiform potentials or focal abnormalities noted. IMPRESSION: This awake EEG shows no consistent abnormalities. There is isolated single sharply contoured wave of unclear clinical significance present in my clinical setting, it could suggest transitory seizures. [id number]/[facility] #: [id number] [facility]
[2017-10-12 14:30] LABS: ABS Basophils 0 10^3/ul (0-0.2); ABS Eosinophils 0.1 10^3/ul (0-0.6); ABS Monocytes 0.5 10^3/ul (0-0.8); ABS Nucleated RBC 0 10^3/ul; Hematocrit 36 % (35-47); Hemoglobin 11.9 g/dl (12.0-16.0); Mean Corpuscular HGB Conc 33 g/dl (31-36); Mean Corpuscular Hemoglobin 32 pg (27-31); Mean Corpuscular Volume 96 fL (80-97); Mean Platelet Volume 8.9 um3 (7.4-10.4); Nucleated Red Blood Cells % 0.2; Platelet Count 188 10^3/ul (150-450); Red Blood Count 3.74 10^6/ul (4.00-5.40); Red Cell Distribution Width 15 % (10.5-15); White Blood Count 6.7 10^3/ul (3.5-10.8)
[2017-10-12 14:39] LABS: EGFR Non-African American 50.7 (>60)
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
[2017-10-12] MEDS: Amitriptyline TAB* 100 MG PO SCH (20:59)
[2017-10-13] MEDS: oxyCODONE TAB* 5 MG TAB PO PRN (05:20)
[2017-10-13] MEDS: Heparin VIAL(*) 5000 UNITS/ML VIAL (FIVE THOUSAND) SUBCUT SCH ×3 (05:20→21:08)
[2017-10-13] MEDS: Omeprazole CAP* 20 MG PO SCH (07:28)
[2017-10-13] MEDS: Acetaminophen TAB* 325 MG PO PRN ×2 (07:34→12:16)
[2017-10-13] MEDS: Insulin LISPRO* 1 UNITS UNIT SUBCUT SCH ×3 (08:49→16:43)
[2017-10-13] MEDS: Metoprolol Succinate XL TAB* 25 MG PO SCH ×2 (08:57→21:05)
[2017-10-13] MEDS: Aspirin 81 mg CHEW TAB* 81 MG TAB.CHEW PO SCH (08:57)
[2017-10-13] MEDS: Gabapentin CAP(*) 100 MG PO SCH ×3 (08:57→21:06)
[2017-10-13] MEDS: Cephalexin CAP* 500 MG PO SCH ×3 (08:57→21:07)
[2017-10-13] MEDS: Fluticasone/Vilanterol MDI(NF) 100/25 MDI INH SCH (08:58)
[2017-10-13] MEDS: Tiotropium CAP.INH* CAP.INH/18 MCG (USE ORDER SET !) INH SCH (12:31)
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
[2017-10-13] MEDS: Amitriptyline TAB* 50 MG PO SCH (21:07)
[2017-10-13] MEDS: Amitriptyline TAB* 10 MG PO SCH (21:07)
[2017-10-14] MEDS: Heparin VIAL(*) 5000 UNITS/ML VIAL (FIVE THOUSAND) SUBCUT SCH ×3 (05:50→21:31)
[2017-10-14] MEDS: Tiotropium CAP.INH* CAP.INH/18 MCG (USE ORDER SET !) INH SCH (07:34)
[2017-10-14] MEDS: Fluticasone/Vilanterol MDI(NF) 100/25 MDI INH SCH (07:37)
[2017-10-14] MEDS: Insulin LISPRO* 1 UNITS UNIT SUBCUT SCH ×3 (08:38→17:22)
[2017-10-14] MEDS: Aspirin 81 mg CHEW TAB* 81 MG TAB.CHEW PO SCH (10:11)
[2017-10-14] MEDS: Metoprolol Succinate XL TAB* 25 MG PO SCH ×2 (10:11→21:32)
[2017-10-14] MEDS: Cephalexin CAP* 500 MG PO SCH ×3 (10:11→21:31)
[2017-10-14] MEDS: oxyCODONE TAB* 5 MG TAB PO PRN (10:12)
[2017-10-14] MEDS: Omeprazole CAP* 20 MG PO SCH (10:12)
[2017-10-14] MEDS: Gabapentin CAP(*) 100 MG PO SCH ×3 (10:12→21:31)
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
[2017-10-14] MEDS: Amitriptyline TAB* 50 MG PO SCH (21:32)
[2017-10-14] MEDS: Amitriptyline TAB* 10 MG PO SCH (21:44)
[2017-10-14] MEDS: Acetaminophen TAB* 325 MG PO PRN (21:45)
[2017-10-15] MEDS: Heparin VIAL(*) 5000 UNITS/ML VIAL (FIVE THOUSAND) SUBCUT SCH (05:35)
[2017-10-15] MEDS: oxyCODONE TAB* 5 MG TAB PO PRN (05:38)
[2017-10-15] MEDS: Omeprazole CAP* 20 MG PO SCH (07:25)
[2017-10-15] MEDS: Insulin LISPRO* 1 UNITS UNIT SUBCUT SCH ×2 (07:25→11:35)
[2017-10-15] MEDS: Tiotropium CAP.INH* CAP.INH/18 MCG (USE ORDER SET !) INH SCH (08:59)
[2017-10-15] MEDS: Fluticasone/Vilanterol MDI(NF) 100/25 MDI INH SCH (08:59)
[2017-10-15] MEDS: Gabapentin CAP(*) 100 MG PO SCH (09:41)
[2017-10-15] MEDS: Cephalexin CAP* 500 MG PO SCH ×2 (09:42→12:29)
[2017-10-15] MEDS: Aspirin 81 mg CHEW TAB* 81 MG TAB.CHEW PO SCH (09:42)
[2017-10-15] MEDS: Metoprolol Succinate XL TAB* 25 MG PO SCH (09:42)
--- NOTE | 2017-10-15 10:23 | PN ---
Progress Note - Progress Note Date of Service: 10/15/17 Note: Patient was seen and examined at bedside earlier today. Please refer to dictated discharge summary for details. She has been dependent on supplemental oxygen while inpatient. She was challenged to ambulate without oxygen, noted to have desaturation down to 86% on room air. She will be qualified for home oxygen upon discharge Will arrange with family service caseworker.
[2017-10-15 14:14] VITALS: BP 125/75
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
== END 2017-10-15 14:14 | disposition home or self-care (01) | DRG 312 ==
LOC: ED 20:18 → MEDTELE 10-11 01:30 → OBSVTOIN 10-12 15:35
PROVIDERS: ADMIT Pediatrics; ATTEND Internal Medicine
PROC: 4A00X4Z Measurement of Central Nervous Electrical Activity, External Approach (ICD-10-PCS; principal; 2017-10-11)
DX: R55 Syncope and collapse (principal); L03.211 Cellulitis of face; L02.01 Cutaneous abscess of face; F07.81 Postconcussional syndrome; I10 Essential (primary) hypertension; F41.9 Anxiety disorder, unspecified; E11.9 Type 2 diabetes mellitus without complications; J45.909 Unspecified asthma, uncomplicated; R21 Rash and other nonspecific skin eruption; S00.81XA Abrasion of other part of head, initial encounter; W19.XXXA Unspecified fall, initial encounter; I95.9 Hypotension, unspecified; R09.02 Hypoxemia; Z86.19 Personal history of other infectious and parasitic diseases; Z87.442 Personal history of urinary calculi; Z88.5 Allergy status to narcotic agent; Z87.891 Personal history of nicotine dependence; Z86.73 Personal history of transient ischemic attack (TIA), and cerebral infarction without residual deficits; Z98.51 Tubal ligation status; Z72.89 Other problems related to lifestyle; Z79.84 Long term (current) use of oral hypoglycemic drugs
CPT/HCPCS: 36415; 36600; 70450; 70496; 70498; 70551; 80048; 80053; 80061; 80307; 80320; 81003; 82550; 82607; 82746; 82803; 83036; 83605; 83735; 84443; 84484; 85025; 85379; 85610; 85730; 93005; 93306; 94640; 94762; 95816; 95886; 95909; 99213; 99284; A9270-GY; G0378; G0463; G0480; G8978-GP-CH; G8978-GP-CI; G8979-GP-CH; G8979-GP-CI; G8980-GP-CH; G8980-GP-CI; J1644; Q9967